=== PATIENT | female | born 1985 | race Caucasian/White ===

== ENCOUNTER 2017-03-07 06:33 | Emergency (ER) | payer MEDICAID ==
--- NOTE | 2017-03-07 07:22 | CT Preliminary Report ---
Exam: CT Head W/O IMPRESSION: Left superficial soft tissue swelling. Otherwise unremarkable. [facility] SITE ID: [id number]
--- NOTE | 2017-03-07 07:25 | CT Report ---
EXAM: CT HEAD EXAM DATE: 03/07/2017 07:03 AM. CLINICAL HISTORY: Head injury, L jain. COMPARISON: None. TECHNIQUE: Multiaxial CT images were obtained from the foramen magnum to the vertex. IV contrast: Non e. Reformats: Coronal. In accordance with CT protocol optimization, one or more of the following dose reduction techniques w ere utilized for this exam: automated exposure control, adjustment of mA and/or KV based on patient s ize, or use of iterative reconstructive technique. FINDINGS: Parenchyma: No intraparenchymal hemorrhage. No evidence of mass, midline shift, or CT findings of inf arction. Avina-white differentiation is distinct. The patient is asymmetric in the gantry. Extraaxial Spaces: Normal for age. No definite subdural or epidural collections. Ventricles: Normal in size and position. Sinuses: Imaged paranasal sinuses, orbits, and mastoids show no significant abnormality. Bones: Unremarkable. Other: Superficial soft tissue swelling with cephalhematoma over left temporal and parietal region. IMPRESSION: Left superficial soft tissue swelling. Otherwise unremarkable. [facility] Referring Provider Line: [phone] SITE ID: [id number]
--- NOTE | 2017-03-07 07:30 | XRAY Preliminary Report ---
Exam: XR Hand 3 View LT IMPRESSION: Soft tissue swelling. [facility] SITE ID: [id number]
--- NOTE | 2017-03-07 07:33 | XRAY Report ---
EXAM: LEFT HAND RADIOGRAPHY EXAM DATE: 03/07/2017 07:02 AM. CLINICAL HISTORY: L 5th pain. COMPARISON: None. TECHNIQUE: 4 views. FINDINGS: Bones: Normal. No fractures or bone lesions. Joints: Normal. No subluxations. Soft Tissues: Mild soft tissue swelling. IMPRESSION: Soft tissue swelling. [facility] Referring Provider Line: [phone] SITE ID: [id number]
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
[2017-03-07] MEDS ORDERED: ACETAMINOPHEN 1,000 MG/100 ML 100 ML IV STA (07:40)
[2017-03-07] MEDS ORDERED: ACETAMINOPHEN 1,000 MG/100 ML 100 ML IV ONE (07:44)
[2017-03-07 07:50] LABS: BASOPHILS % (AUTO) 0.5 %; EOSINOPHILS # (AUTO) 0.1 10^3/uL (0.0-0.7); EOSINOPHILS % (AUTO) 2.2 %; HGB - HEMOGLOBIN 12.8 g/dL (12.0-16.0); LYMPHOCYTES # (AUTO) 1.7 10^3/uL (1.5-3.5); LYMPHOCYTES % (AUTO) 26.9 %; MEAN CORPUSCULAR HEMOGLOBIN 29.2 pg (27.0-31.0); MEAN CORPUSCULAR HGB CONC 33.6 g/dL (32.0-36.0); MEAN CORPUSCULAR VOLUME 86.8 fL (81.0-99.0); MEAN PLATELET VOLUME 7.6 fL (7.9-10.8); MONOCYTES # (AUTO) 0.7 10^3/uL (0.0-1.0); MONOCYTES % (AUTO) 10.9 %; NEUTROPHILS # (AUTO) 3.8 10^3/uL (1.5-6.6); NEUTROPHILS % (AUTO) 59.5 %; RED BLOOD COUNT 4.37 10^6/uL (4.20-5.40); RED CELL DISTRIBUTION WIDTH 12.9 % (12.0-15.0); UNCORRECTED WHITE BLOOD COUNT 6.4 x10^3/uL; WHITE BLOOD COUNT 6.4 x10^3/uL (4.8-10.8)
[2017-03-07 08:00] LABS: ALBUMIN/GLOBULIN RATIO 1.5 (1.0-2.2); BILIRUBIN,TOTAL 1.3 mg/dL (0.2-1.0); CALCIUM 9.1 mg/dL (8.5-10.3); CREATININE 0.7 mg/dL (0.4-1.0); POTASSIUM 3.5 mmol/L (3.5-5.0); TOTAL PROTEIN 7.2 g/dL (6.7-8.2)
[2017-03-07 08:47] LABS: BILIRUBIN,URINE NEGATIVE (NEGATIVE); PH,URINE 5.5 PH (5.0-7.5)
[2017-03-07 08:53] LABS: UA w/ MICROSCOPIC CHARGE YES
[2017-03-07 08:54] LABS: HCG UR QUAL NEGATIVE
[2017-03-07 09:14] LABS: UR CULTURE IF IND INDICATED
[2017-03-07 09:58] VITALS: BP 118/72
== END 2017-03-07 10:12 | disposition home or self-care (01) ==
LOC: ED 06:33
DX: S00.03XA Contusion of scalp, initial encounter (principal); S60.222A Contusion of left hand, initial encounter; Y08.89XA Assault by other specified means, initial encounter; Y07.03 Male partner, perpetrator of maltreatment and neglect; F15.10 Other stimulant abuse, uncomplicated
CPT/HCPCS: 36415; 70450; 73130; 80053; 80306; 81001; 81025; 83690; 85025; 87077; 87086; 87181; 96374; 99283; 99284; J0131; 81003

== ENCOUNTER 2021-06-26 10:36 | Emergency (ER) | payer MEDICAID ==
--- NOTE | 2021-06-26 11:39 | ED Physician Documentation ---
PD HPI HEENT - Stated complaint Stated Complaint: FACE SWELLING - Chief complaint Chief Complaint: Wound - History obtained from History obtained from: Patient - History of Present Illness Timing - onset: How many days ago (5) Timing - duration: Days (5) Timing - details: Gradual onset, Still present Location: Tooth Improves: Medication Worsens: Everything Associated symptoms: Congestion, Facial swelling Similar symptoms before: Diagnosis (dental abcess) Recently seen: Emergency Dept (gramercy) - Additional information Additional information: 36-year-old female has developed swelling and tenderness to her face on the right side from a right upper posterior molar. The molar has broken a filling has fallen out of it and she has now developed the pain and swelling. She was seen in emergency department at [facility] 3 days ago and placed on Augmentin. Despite this she has had increased swelling and pain in her face and even her right eye is swelling. She has a dentist in [place] she has not called him yet as she is planning to be on antibiotics before getting into see him. Review of Systems Constitutional: denies: Fever Eyes: reports: Other (swelling makes the right eye not all the way open). denies: Decreased vision Ears: denies: Ear pain Nose: reports: Congestion, Other (facial swelling). 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 : None HEENT: None Psych: None Musculoskeletal: None Derm: None - Past Surgical History Past Surgical History: Yes General: Appendectomy HEENT: Tonsil/Adenoidectomy - Present Medications Home Medications: Ambulatory Orders Medication Instructions Recorded Confirmed Amox/Clav 875/125 [Augmentin 1 tablet PO Q12H 06/26/21 06/26/21 875/125 Tab] HYDROcod/ACETAM 5/325 [[place] 5/325] 1 - 2 tablet PO Q6H PRN #14 tablet 06/26/21 - Allergies Allergies/Adverse Reactions: Allergies Allergy/AdvReac Type Severity Reaction Status Date / Time Penicillins Allergy Unknown Verified 06/26/21 10:47 - Social History Does the pt smoke?: No Smoking Status: Never smoker Does the pt drink ETOH?: Yes Does the pt have substance abuse?: Yes - Immunizations Immunizations are current?: Yes Immunizations: TDAP >10years/unknown - POLST Patient has POLST: No PD ED PE NORMAL - Vitals Vital signs reviewed: Yes (tachy ) - General General: Alert and oriented X 3, Well developed/nourished, Other (36-year-old female with swelling to the right side of her face to her upper cheek that invo lves both eyelids as well. Appears to be in pain with bioengineer tone and flattened affect) - HEENT HEENT: Atraumatic, PERRL, EOMI, Other (facial swelling as above. There is a broken molar with a hole in it on the right upper. On the gingival buccal fold there is fullness and fluctuance. Extremely tender.) - Neck Neck: Supple, no meningeal sign, No bony TTP - Respiratory Respiratory: No respiratory distress - Derm Derm: Normal color, Warm and dry, No rash - Extremities Extremities: No deformity, No edema - Neuro Neuro: Alert and oriented X 3, sound technician 2-12 intact, No motor deficit, No sensory deficit, Normal speech Eye Opening: Spontaneous Motor: Obeys Commands Verbal: Oriented GCS Score: 15 - Psych Psych: Normal mood, Other (Affect is flattened.) Results - Vitals Vitals: Vital Signs - 24 hr 06/26/21 06/26/21 10:47 11:16 Temperature 36.5 C Heart Rate 120 H 104 H Respiratory 18 20 Rate Blood Pressure 112/77 104/71 O2 Saturation 100 97 Oxygen O2 Source Room air Procedures - Abscess I&D (location) Right upper gingival buccal fold Preparation: Other (20% divya with healy) Incision: Needle aspiration, Purulent drainage (2ml pus 3ml blood), Culture obtained Other: Pt tolerated well, Antibiotic prescribed PD MEDICAL DECISION MAKING - ED course Complexity details: considered differential, d/w patient ED course: 36-year-old female with a dental abscess requires needle aspiration to the buccal gingival fold with successful relief of pressure and the patient is able to see through her right eye a more easily with reduction of the swelling almost immediately. Departure - Departure Disposition: 01 Home, Self Care Clinical Impression: Dental abscess Condition: Stable Instructions: ED Abscess Dental Follow-Up: [facility] [Provider Group] Prescriptions: HYDROcod/ACETAM 5/325 [[place] 5/325] 1 - 2 tablet PO Q6H PRN #14 tablet PRN Reason: Pain
[2021-06-26 11:58] VITALS: BP 110/60
== END 2021-06-26 11:54 | disposition home or self-care (01) ==
LOC: ED 10:36
DX: K04.7 Periapical abscess without sinus (principal)
CPT/HCPCS: 41800; 99282; 99284

== ENCOUNTER 2022-10-11 04:33 | Emergency (ER) | payer MEDICAID ==
[2022-10-11] MEDS ORDERED: KETOROLAC 30 MG/ML VIAL IM STA (05:10)
--- NOTE | 2022-10-11 05:14 | ED Physician Documentation ---
History of Present Illness - Stated complaint Stated Complaint: R SWOLLEN FACE, DENTAL PX - Chief complaint Chief Complaint: Heent - History obtained from History obtained from: Patient - Additonal information Additional information: 37-year-old woman with history of dental infection presents with right upper tooth swelling and facial swelling associated with nausea since yesterday morning. Denies fever, difficulty swallowing or tolerating secretions. 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 : None HEENT: None Psych: Anxiety Musculoskeletal: None Derm: None - Past Surgical History Past Surgical History: Yes General: Appendectomy HEENT: Tonsil/Adenoidectomy - Present Medications Home Medications: Ambulatory Orders Medication Instructions Recorded Confirmed No Known Home Medications 10/11/22 10/11/22 - Allergies Allergies/Adverse Reactions: Allergies Allergy/AdvReac Type Severity Reaction Status Date / Time Penicillins Allergy Unknown Verified 10/11/22 05:01 - Social History Does the pt smoke?: No Smoking Status: Never smoker Does the pt drink ETOH?: Yes Does the pt have substance abuse?: Yes - Immunizations Immunizations are current?: Yes Immunizations: TDAP >10years/unknown - POLST Patient has POLST: No PD ED PE NORMAL - Vitals Vital signs reviewed: Yes - General General: Alert and oriented X 3, No acute distress, Well developed/nourished - HEENT HEENT: Atraumatic, PERRL, EOMI, Moist mucous membranes, Pharynx benign, Other (Poor dentition. Right upper molar avulsed tooth with adjacent soft tissue swelling without fluctuance.) Results - Vitals Vitals: Vital Signs - 24 hr 10/11/22 04:57 Temperature 36.7 C Heart Rate 98 Respiratory 16 Rate Blood Pressure 130/85 H O2 Saturation 100 Oxygen O2 Source Room air PD Medical Decision Making - ED course ED course: 37-year-old woman presents with dental infection. Antibiotics provided. Plan to follow-up with her dentist. Return precautions given. Departure - Departure Disposition: 01 Home, Self Care Clinical Impression: Dental infection Condition: Good Instructions: ED Abscess Dental Comments: You are seen in emergency department for dental infection. Antibiotics were sent electronically to [facility] in [place]. Follow-up with your dentist this week. Return to the emergency department for new or worsening symptoms or other concerns
[2022-10-11 06:29] VITALS: BP 114/73
== END 2022-10-11 05:40 | disposition home or self-care (01) ==
LOC: ED 04:33
DX: K04.7 Periapical abscess without sinus (principal)
CPT/HCPCS: 96372; 99283